=== PATIENT | female | born 1975 | race Caucasian/White ===

== ENCOUNTER 2017-03-12 00:18 | Emergency (ER) | payer MEDICAID ==
[~2017-03-12] VITALS: Ht 170.2 cm; Wt 118.0 kg
[2017-03-12] MEDS ORDERED: IBUPROFEN 600MG TABLET PO ONE (05:30)
[2017-03-12 06:05] VITALS: BP 115/79
== END 2017-03-12 06:42 | disposition home or self-care (01) ==
LOC: ER 00:19
DX: S93.401A Sprain of unspecified ligament of right ankle, initial encounter (principal); Z98.890 Other specified postprocedural states; W52.XXXA Crushed, pushed or stepped on by crowd or human stampede, initial encounter; Y93.89 Activity, other specified; Y99.8 Other external cause status; Y92.89 Other specified places as the place of occurrence of the external cause
CPT/HCPCS: 73610; 81025; 99284

== ENCOUNTER 2017-12-03 13:44 | Emergency (ER) | payer MEDICAID ==
[~2017-12-03] VITALS: Ht 175.3 cm; Wt 116.0 kg
[2017-12-03] MEDS ORDERED: KETOROLAC 30MG/ML VIAL IV STA (19:43)
[2017-12-03] MEDS ORDERED: SODIUM CHLORIDE 0.9% 1,000 ML IV ONE (19:43)
[2017-12-03] MEDS ORDERED: DICYCLOMINE 10 MG/5 ML ORAL SYR PO ONE (19:45)
[2017-12-03] MEDS ORDERED: MAGNESIUM/ALUMINUM HYDROXIDE/SIMETHICONE 30ML UDC PO ONE (19:45)
[2017-12-03] MEDS ORDERED: ONDANSETRON HCL 4MG/2ML INJ IV ONE (19:45)
[2017-12-03] MEDS ORDERED: VISCOUS LIDOCAINE 2% 15 ML UDC PO ONE (19:45)
[2017-12-03] MEDS ORDERED: FAMOTIDINE 20MG/2ML VIAL IV ONE (19:45)
[2017-12-03 20:22] LABS: PROTHROMBIN TIME 10.3 sec (9.4-11.6)
[2017-12-03 20:23] LABS: BASOPHILS % 0.2 % (0.0-2.0); EOSINOPHILS % 0.5 % (0.0-5.0); HEMATOCRIT. 38.9 % (36.0-48.0); HEMOGLOBIN. 13.1 g/dL (12.0-16.0); MEAN CORPUSCULAR HEMOGLOBIN 28.2 pg (28.0-32.0); MEAN CORPUSCULAR VOLUME 83.7 fL (81.0-99.0); MEAN PLATELET VOLUME 6.8 fl (7.4-10.4); MONOCYTES % 5.6 % (2.0-8.0); NEUTROPHILS % 69.7 % (40.0-76.0); PLATELET 256 x1000/uL (130-400); RED BLOOD CELL COUNT 4.65 mill/uL (4.2-5.4); RED CELL DISTRIBUTION WIDTH 14.6 % (11.6-14.6)
[2017-12-03 20:27] LABS: CHLORIDE 105 mEq/L (98-107)
[2017-12-03 20:35] LABS: HCG SCREEN NEGATIVE
[2017-12-03 20:45] VITALS: BP 121/63
== END 2017-12-03 22:35 | disposition home or self-care (01) ==
LOC: ER 13:54
DX: R10.13 Epigastric pain (principal); R11.2 Nausea with vomiting, unspecified; F17.200 Nicotine dependence, unspecified, uncomplicated; Z98.890 Other specified postprocedural states
CPT/HCPCS: 36415; 80053; 83690; 84703; 85025; 85610; 96361; 96374; 96375; 99284; J1885; J2405; J3490; J7030